=== PATIENT | male | born 1990 | race Caucasian/White ===

== ENCOUNTER 2019-02-25 04:50 | Emergency (ER) | payer OTHER ==
[~2019-02-25] VITALS: Ht 185.4 cm; Wt 77.1 kg
[2019-02-25 04:56] VITALS: BP 113/68
--- NOTE | 2019-02-25 04:56 | NUR ---
ED Nurse Note: Patient walked in to ER due to food poisoning. As per patient, he had gilberto food at 2030 yesterday and he has vomitting and having diarrhea since 0230 today. Vomiting x1 noted at the ER. No stated medical history. Alert and oriented, verbally responsive. Afebrile. No SOB. Breathing even and unlabored. VSS.
--- NOTE | 2019-02-25 05:06 | NUR ---
ED Nurse Note: IV line established. Blood collected and sent to lab.
--- NOTE | 2019-02-25 05:07 | Emergency Room Report ---
History of Present Illness General Chief Complaint: Nausea, Vomiting, and Diarrhea Source: Patient Present Illness [facility] This is a 28-year-old male with no past medical history. He presents with chief complaint of abdominal pain with nausea and vomiting. He ate [place] food at 8:30 PM. He went to sleep around 11:30 PM. He woke up feeling nauseous with vomiting. A team to get better and then he came back again. He has been persistently vomiting since 2 AM. Vomiting is watery initially. Then he has some blood in it. He said in total about half a cup of blood after several bouts of retching and vomiting. Vomiting is crampy in nature. No diarrhea. Denies any trauma. Girlfriend did not have the same symptom. Allergies: Coded Allergies: No Known Allergies (Unverified , 02/25/19) Patient History Past Medical History: none, see triage record, old chart reviewed Past Surgical History: none Pertinent Family History: none Social History: Denies: smoking Immunizations: other Reviewed Nursing Documentation: PMH: Agreed; PSxH: Agreed Nursing Documentation-PMH Past Medical History: No Stated History Review of Systems Eye: Denies: eye pain, blurred vision ENT: Denies: ear pain, nose congestion, throat swelling Respiratory: Denies: cough, shortness of breath Cardiovascular: Denies: chest pain, palpitations Gastrointestinal: Reports: abdominal pain, nausea, vomiting; Denies: diarrhea Musculoskeletal: Denies: back pain, joint pain Skin: Denies: rash Neurological: Denies: headache, numbness Endocrine: Denies: increased thirst, increased urine Hematologic/Lymphatic: Denies: easy bruising All Other Systems: negative except mentioned in HPI Physical Exam Vital Signs Date Time Temp Pulse Resp B/P (MAP) Pulse Ox O2 Delivery O2 Flow Rate FiO2 02/25/19 04:53 98.2 109 20 113/68 (83) 98 Room Air Vitals normal Sp02 EP Interpretation: reviewed, normal General Appearance: well appearing, no apparent distress, alert, other - Actively retching and vomiting Head: normocephalic, atraumatic Eyes: bilateral eye PERRL, bilateral eye EOMI ENT: hearing grossly normal, normal pharynx Neck: full range of motion, supple, no meningismus Respiratory: chest non-tender, lungs clear, normal breath sounds Cardiovascular #1: regular rate, rhythm, no murmur Gastrointestinal: non tender, no mass, no organomegaly, no bruit, non-distended , decreased bowel sounds Musculoskeletal: back normal, gait/station normal, normal range of motion Psychiatric: mood/affect normal Medical Decision Making Diagnostic Impression: Primary Impression: Nausea and vomiting in adult Additional Impression: Hematemesis with nausea ER Course Patient presents with nausea and vomiting with mild hematemesis. Probably secondary to food poisoning since this occurred just a few hours after eating. However, his girlfriend is not sick. Patient better now. No evidence of an acute abdomen or obstruction. Symptom is also early in the process. If not better within 24 hours, will need to come back for CT scan and further work-up. Patient expressed understanding. Last Vital Signs Date Time Temp Pulse Resp B/P (MAP) Pulse Ox O2 Delivery O2 Flow Rate FiO2 02/25/19 04:56 98.2 80 20 113/68 98 Room Air Status: improved Disposition: HOME, SELF-CARE Condition: Stable Scripts Ondansetron (Zofran) 4 Mg Tablet 4 MG ORAL Q6H PRN for Nausea & Vomiting, #10 TAB 0 Refills Prov: Jed Helms MD 02/25/19 Referrals: NOT CHOSEN [facility]/,REFERRING (PCP) Additional Instructions: Advance diet as tolerated. Follow-up with your doctor in 2-3 days for recheck if not better. Return if symptoms not improve or worsen in 12 to 24 hours. Jed Helms MD Feb 25, 2019 05:07
[2019-02-25 05:21] LABS: BASOPHILS % (AUTO) 0.3 % (0.0-2.0); EOSINOPHILS % (AUTO) 2.6 % (0.0-3.0); HEMATOCRIT 46.2 % (42.0-52.0); HEMOGLOBIN 16.9 G/DL (14.2-18.0); LYMPHOCYTES % (AUTO) 7.6 % (20.0-45.0); MEAN CORPUSCULAR VOLUME 89 FL (80-99); MONOCYTES % (AUTO) 5.4 % (1.0-10.0); NEUTROPHILS % (AUTO) 84.2 % (45.0-75.0); PLATELET COUNT 208 K/UL (150-450); RED BLOOD COUNT 5.22 M/UL (4.70-6.10); RED CELL DISTRIBUTION WIDTH 10.1 % (11.6-14.8); WHITE BLOOD COUNT 12.5 K/UL (4.8-10.8)
[2019-02-25 05:40] LABS: ANION GAP 9 mmol/L (5-15); BLOOD UREA NITROGEN 22 mg/dL (7-18); CALCIUM 9.5 MG/DL (8.5-10.1); CARBON DIOXIDE 26 MMOL/L (21-32); CHLORIDE 106 MMOL/L (98-107); CREATININE 1.2 MG/DL (0.55-1.30); POTASSIUM 3.5 MMOL/L (3.5-5.1); SODIUM 141 MMOL/L (136-145)
[2019-02-25] MEDS ORDERED: ZOFRAN4 MG ORAL (05:58)
[2019-02-25 06:46] VITALS: BP 113/68
--- NOTE | 2019-02-25 06:46 | NUR ---
ED Nurse Note: Pt cleared by ERMD for discharge. DC instructions/prescription was given and explained to pt and verbalized understanding of teachings. All medical deviecs such as ID band and IV line removed. Pt is AAO x4, ambulatory and left with all personal belongings. Accompanied by s/o.
== END 2019-02-25 06:46 | disposition home or self-care (01) ==
LOC: EMR 05:03
DX: K92.0 Hematemesis (principal)
CPT/HCPCS: 36415; 80048; 85025; 96361; 96374; 96375; 96376; 99284; J2405; S0028; J7030